=== PATIENT | female | born 1965 ===

== ENCOUNTER 2018-05-21 06:33 | Inpatient (IN) | payer OTHER | END 2018-05-22 13:32 | disposition home or self-care (01) | DRG 472 | LOC: O/R 06:33 → SURG 17:57 | PROC: 0RG20A0 Fusion of 2 or more Cervical Vertebral Joints with Interbody Fusion Device, Anterior Approach, Anterior Column, Open Approach (ICD-10-PCS; principal; 2018-05-21) | PROC: 0RT30ZZ Resection of Cervical Vertebral Disc, Open Approach (ICD-10-PCS; 2018-05-21) | PROC: 07DS3ZZ Extraction of Vertebral Bone Marrow, Percutaneous Approach (ICD-10-PCS; 2018-05-21) | DX: M47.12 Other spondylosis with myelopathy, cervical region (principal); M50.023 Cervical disc disorder at C6-C7 level with myelopathy ==

== ENCOUNTER 2018-10-06 23:36 | Emergency (ER) | payer OTHER ==
[~2018-10-06] VITALS: Ht 162.6 cm; Wt 49.0 kg
[~2018-10-06 23:36] MED LIST: CLONAZEPAM1 MG PO; COLACE100 MG PO; PERCOCET 5-3251 EACH PO
[2018-10-07] MEDS ORDERED: XOPENEX0.63 MG/3 IH (03:42)
== END 2018-10-07 03:49 | disposition home or self-care (01) ==
LOC: ER 23:36
DX: R06.02 Shortness of breath (principal)

== ENCOUNTER 2018-10-08 05:16 | Emergency (ER) | payer OTHER ==
[~2018-10-08] VITALS: Ht 162.6 cm; Wt 49.0 kg
[~2018-10-08 05:16] MED LIST changes: +XOPENEX0.63 MG/3 IH
== END 2018-10-08 12:05 | disposition home or self-care (01) ==
LOC: ER 05:16
DX: J06.9 Acute upper respiratory infection, unspecified (principal)